=== PATIENT | male | born 1970 | race Caucasian/White ===

== ENCOUNTER → 2017-05-11 12:43 | Outpatient (CLI) | payer OTHER | END | disposition home or self-care (01) | LOC: D.CT 12:43 | DX: R10.9 Unspecified abdominal pain (principal) ==

== ENCOUNTER → 2018-01-07 13:08 | Outpatient (CLI) | payer OTHER | END | disposition home or self-care (01) | LOC: D.CT 01-06 16:30 | DX: R10.31 Right lower quadrant pain (principal) ==

== ENCOUNTER 2019-10-27 11:29 | Observation (INO) | payer OTHER ==
[~2019-10-27] VITALS: Ht 182.9 cm; Wt 97.0 kg
--- NOTE | ~2019-10-27 | EC ---
PATIENT:KAREN CONROY DATE OF SERVICE: 10/27/19 SEX: M MEDICAL RECORD: [id number] DATE OF : [birth year] LOCATION:D. D.211 AGE OF PATIENT: 49 ADMISSION DATE: 10/27/19 REFERRING PHYSICIAN: INTERPRETING PHYSICIAN: MAURA DE GUZMAN MD ECHOCARDIOGRAM REPORT ECHO CHARGES 4 ECHO COMPLETE Date: 10/28/19 CLINICAL DIAGNOSIS: CP ECHOCARDIOGRAPHIC MEASUREMENTS (adult normal given) AC root (d.<3.7cm) 2.7 cm LV Septum d (<1.2 cm> 0.7 cm Valve Excursion 1.4 cm LV Septum (systole) 1.2 cm Left Atria (s.<4.0cm> 2.1 cm LVPW d(<1.2cm) 0.8 cm RV (d.<2.3cm) 2.9 cm LVPW (sytole) 1.0 cm LV diastole(<5.6CM) 5.6 cm MV E-F(>70mm/sec) cm LV systole 4.2 cm LVOT Diameter 2.0 cm MV exc.(>10mm) cm Est.ejection fraction (50-75%) % DOPPLER: LVIT cm/sec A 70 cm/sec E 63 cm/sec LA cm/sec RVSP 20.8 mmHg LVOT 115 cm/sec AOP1/2T m/s Asc. 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 De Guzman TAPE# PACS Pericardial Effusion N DATE OF SERVICE: PROCEDURE: Transthoracic echocardiogram. Left ventricle is normal size and normal function. There is mild LVH that is concentric in nature. The ejection fraction is 55%. Left atrium is normal size and normal function. ECHOCARDIOGRAM REPORT [id number] KAREN CONROY The aortic valve is normal. Mitral valve is normal in structure and normal function. Tricuspid valve has normal structure and function with normal right ventricular systolic pressures. Right ventricle is normal size and function. Right atrium is normal. TRANSINT:[id number] Voice Confirmation ID: [id number] DOCUMENT ID: [id number] MAURA DE GUZMAN MD CC: [id number] DICTATION DATE: 10/29/191915 CAMPUS MONITOR: 10/29/19 2245 [address] IN 10/28/19 [place] [id number] [place] [address]
--- NOTE | ~2019-10-27 | ST ---
PATIENT:KAREN CONROY MEDICAL RECORD: [id number] SEX: M [facility] ORDER #: ADMISSION DATE: 10/27/19 AGE OF PATIENT: 49 REFERRING PHYSICIAN: INTERPRETING PHYSICIAN: MAURA DE GUZMAN MD DATE OF SERVICE: 10/28/2019 LEXISCAN DIRECTED NUCLEAR STRESS TEST PROCEDURE IN DETAIL: The patient was brought to the nuclear stress lab in a stable condition. The patient had Lexiscan injected per normal protocol. The patient had no significant symptoms. The patient tolerated the procedure without difficulty. FINDINGS: The patient's ejection fraction was approximately 65% and the SPECT imaging revealed no evidence of ischemia. IMPRESSION: 1. Normal nuclear stress test. 2. Normal left ventricular systolic function. RECOMMENDATIONS: Continue medical management. TRANSINT:[id number] Voice Confirmation ID: [id number] DOCUMENT ID: [id number] MAURA DE GUZMAN MD CC: [id number] DICTATION DATE: 10/29/19 1014 SOFTWARE ASSET MANAGER: 10/29/19 2326 [address] [place] 10/28/19 [place] [id number] [place] [id number]
[2019-10-27] MEDS ORDERED: CALAN SR240 MG PO (11:41)
[2019-10-27 12:16] LABS: CALC OSMOLALITY 285 mosm/kg (275-300); CALCIUM 8.7 mg/dL (8.5-10.1); CARBON DIOXIDE 30.4 mmol/L (21.0-32.0); CHLORIDE - SERUM 105 mmol/L (98-107); CREATININE - SERUM 1.2 mg/dL (0.6-1.3); GLUCOSE 103 mg/dL (74-106); POTASSIUM - SERUM 3.7 mmol/L (3.5-5.1); SODIUM 142 mmol/L (136-145); UREA NITROGEN 20 mg/dL (7-18); eGFR NON AFRICAN AMERICAN 68 mL/min (90-120)
[2019-10-27 12:18] LABS: BASOPHILS 0.5 % (0-2); EOSINOPHILS 1.6 % (0-7); HEMATOCRIT 44.8 % (42.0-54.0); HEMOGLOBIN 15.2 g/dL (13.5-17.5); IMMATURE GRANULOCYTES 0.3 % (0-5); LYMPHOCYTES 24.8 % (15-50); MCH 31.5 pg (26.0-34.0); MCHC 33.9 g/dL (31.0-37.0); MCV 92.9 fL (80.0-100.0); MEAN PLATELET VOLUME 12.8 fL (7.4-10.4); MONOCYTES 13.9 % (2-11); NEUTROPHILS 58.9 % (40-80); PLATELET COUNT 148 10x3/uL (130-400); RBC 4.82 10x6/uL (4.20-6.10); RDW 13.6 % (11.5-14.5); WBC 6.4 10x3/uL (4.8-10.8)
[2019-10-27 12:21] LABS: APTT 26.1 SECONDS (22.8-39.4); INR 0.94 (0.85-1.17); PROTIME 12.5 SECONDS (11.6-15.0)
[2019-10-27 12:31] LABS: ALBUMIN 3.7 g/dL (3.4-5.0); ALKALINE PHOSPHATASE 79 U/L (30-120); ALT (SGPT) 39 U/L (10-68); BILIRUBIN - TOTAL 0.69 mg/dL (0.2-1.3); CKMB 0.9 U/L (0.0-3.6); CREATINE KINASE 97 UL (21-232); PROTEIN - SERUM 6.8 g/dL (6.4-8.2); TROPONIN-I < 0.017 ng/mL (0.000-0.060)
[2019-10-27 13:26] VITALS: BP 142/91
[2019-10-27 14:03] LABS: CREATINE KINASE 92 UL (21-232); TROPONIN-I < 0.017 ng/mL (0.000-0.060)
--- NOTE | 2019-10-27 14:30 | NUR ---
RECEIVED PT TO ROOM 2116, PT RESTING IN BED COMFROTABLY WITH EYES OPEN. PT APPROPRIATELY ANSWERS QUESTIONS AND IS A&OX4. NO ACUTE NEEDS OR DISTRESS NOTED AT THIS TIME. WILL CONT TO MONITOR.
[2019-10-27] MEDS ORDERED: RELAFEN500 MG PO (14:34)
[2019-10-27] MEDS ORDERED: DEPAKOTE500 MG PO (14:34)
[2019-10-27 17:37] VITALS: BP 146/86; Ht 182.9 cm; Wt 97.0 kg
[2019-10-27 20:00] VITALS: BP 166/103
--- NOTE | 2019-10-27 20:00 | NUR ---
REPORT RECIEVED AND INITIAL ROUNDS COMPLETED. PT RESTING IN BED WITH NO DISTRESS. C/O MIGRAINE. IVF NS @ 75ML/HR INFUSING TO RIGHT HAND. UPDATED PT'S HOME MED REC AND WILL CALL CUSTOMER EXPERIENCE LEADER BUSINESS INTEGRATION MANAGER FOR MEDS PT STATES HE NEEDS TONIGHT. INSTRUCT ON NPO AFTER MIDNIGHT UNTIL SEEN BY SPINNERET CLEANER IN AM.
[2019-10-27] MEDS ORDERED: CALAN SR180 MG PO (20:07)
[2019-10-27] MEDS ORDERED: IMITREX100 MG PO (20:12)
[2019-10-27] MEDS ORDERED: COZAAR100 MG PO (20:14)
[2019-10-27] MEDS ORDERED: HYDROCHLOROTH12.5 M1 PO (20:14)
[2019-10-27] MEDS ORDERED: LIPITOR20 MG PO (20:14)
--- NOTE | 2019-10-27 20:28 | NUR ---
SPOKE WITH SURYA PITTMAN ABOUT HOME MEDS, PT'S REQUEST FOR HIS IMITREX FOR A MIGRAINE. ORDERS RECIEVED.
--- NOTE | 2019-10-27 22:03 | NUR ---
PT HAS RECIEVED IMITREX FOR HIS MIGRAINE HEADACHE, ZOFRAN FOR NAUSEA AND HIS OTHER BEDTIME MEDS AT THIS TIME. IVF INFUSING. ROOM DARKENED TO HELP WITH MIGRAINE. CPOC.
[2019-10-28] VITALS: BP 169/95
--- NOTE | 2019-10-28 00:20 | NUR ---
RESTING IN BED, NO DISTRESS. 70 SR PER TELEMETRY. CALL LIGHT IN REACH. SR UP X 2.
[2019-10-28 01:23] LABS: BASOPHILS 0.2 % (0-2); EOSINOPHILS 0.3 % (0-7); HEMATOCRIT 45.2 % (42.0-54.0); HEMOGLOBIN 15.2 g/dL (13.5-17.5); IMMATURE GRANULOCYTES 0.4 % (0-5); LYMPHOCYTES 10.6 % (15-50); MCH 31.3 pg (26.0-34.0); MCHC 33.6 g/dL (31.0-37.0); MEAN PLATELET VOLUME 12.3 fL (7.4-10.4); NEUTROPHILS 78.5 % (40-80); PLATELET COUNT 157 10x3/uL (130-400); RBC 4.86 10x6/uL (4.20-6.10); RDW 13.5 % (11.5-14.5); WBC 10.7 10x3/uL (4.8-10.8)
[2019-10-28 01:41] LABS: CALC OSMOLALITY 281 mosm/kg (275-300); CALCIUM 8.3 mg/dL (8.5-10.1); CARBON DIOXIDE 28.7 mmol/L (21.0-32.0); CHLORIDE - SERUM 104 mmol/L (98-107); CKMB 0.6 U/L (0.0-3.6); CREATINE KINASE 81 UL (21-232); CREATININE - SERUM 1.1 mg/dL (0.6-1.3); GLUCOSE 110 mg/dL (74-106); MAGNESIUM - SERUM 1.8 mg/dL (1.8-2.4); PHOSPHOROUS 3.2 mg/dL (2.5-4.9); POTASSIUM - SERUM 4.5 mmol/L (3.5-5.1); SODIUM 140 mmol/L (136-145); TROPONIN-I < 0.017 ng/mL (0.000-0.060); UREA NITROGEN 17 mg/dL (7-18); VALPROIC ACID (DEPAKOTE) 38.4 ug/mL (50.0-100.0); eGFR NON AFRICAN AMERICAN 75 mL/min (90-120)
[2019-10-28 04:00] VITALS: BP 154/95
--- NOTE | 2019-10-28 04:56 | NUR ---
MEDICATED WITH MORPHINE AND ZOFRAN FOR CONTINUED HEADACHE. REMOVED NITROGLYCERIN PATCH. SR PER TELEMETRY. CPOC. NPO TIL SEEN BY LABELER.
--- NOTE | 2019-10-28 07:15 | NUR ---
RECEIVED PT IN BED AAOX4 RESP UNLABORED SKIN W/D NAD NOTED
[2019-10-28 08:07] VITALS: BP 145/91
[2019-10-28 11:32] VITALS: BP 154/99
--- NOTE | 2019-10-28 17:00 | NUR ---
REVIWED DISCHARGE INSTRUCTIONS WITH PT STATES UNDERSTANDING COPY GIVEN DCD SALINE LOCK TO RT HAND WITH IV CATHETER INTACT SITE FREE OF REDNESS OR EDEMA PT DISCHARGED HOME IN STABLE CONDITION WITH ALL PERSONAL BELONGINGS LEFT UNIT VIA W/C
== END 2019-10-28 17:00 | disposition home or self-care (01) ==
LOC: D.ER 11:29 → D.M2 12:50 → OBSVTIME 12:50 → D.M2 10-28 17:00
PROVIDERS: Emergency Medicine; ADMIT Internal Medicine Nephrology; ATTEND Internal Medicine Nephrology
DX: R07.9 Chest pain, unspecified (principal); I10 Essential (primary) hypertension; F17.203 Nicotine dependence unspecified, with withdrawal; E78.5 Hyperlipidemia, unspecified; F31.30 Bipolar disorder, current episode depressed, mild or moderate severity, unspecified; G89.29 Other chronic pain; M54.9 Dorsalgia, unspecified